=== PATIENT | male | born 1990 | race Caucasian/White ===

== ENCOUNTER 2017-12-02 23:20 | Emergency (ER) | payer SELFPAY ==
[~2017-12-02] VITALS: Ht 172.7 cm; Wt 80.0 kg
[2017-12-03 04:50] VITALS: BP 128/84
== END 2017-12-03 04:59 | disposition home or self-care (01) ==
LOC: EMS 23:21
DX: S01.01XA Laceration without foreign body of scalp, initial encounter (principal); F17.210 Nicotine dependence, cigarettes, uncomplicated; W22.8XXA Striking against or struck by other objects, initial encounter; Y93.89 Activity, other specified; Y92.89 Other specified places as the place of occurrence of the external cause; Y99.8 Other external cause status
CPT/HCPCS: 12001; 99283